=== PATIENT | male | born 1990 | race Caucasian/White ===

== ENCOUNTER 2017-02-11 02:13 | Emergency (ER) | payer SELFPAY ==
[~2017-02-11] VITALS: Ht 173 cm; Wt 82.6 kg
== END 2017-02-11 04:10 | disposition home or self-care (01) ==
LOC: ER 02:13
DX: J06.9 Acute upper respiratory infection, unspecified (principal); Z87.891 Personal history of nicotine dependence
CPT/HCPCS: 96372; 99283